=== PATIENT | male | born 1970 | race Two or more races ===

== ENCOUNTER 2020-12-07 14:07 | Emergency (ER) | payer OTHER ==
[~2020-12-07] VITALS: Ht 175.3 cm; Wt 86.3 kg
[2020-12-07] MEDS ORDERED: DIPH,PERTUSS(ACELL),TET VAC/PF 0.5 ML SYRINGE. VAX IM ONE (15:00)
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
[2020-12-07 15:11] VITALS: BP 128/75
[2020-12-07] MEDS ORDERED: NAPR-514 PO (15:13)
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
== END 2020-12-07 15:33 | disposition home or self-care (01) ==
LOC: ER 14:07
DX: S01.81XA Laceration without foreign body of other part of head, initial encounter (principal); Z88.0 Allergy status to penicillin; V49.49XA Driver injured in collision with other motor vehicles in traffic accident, initial encounter; Y93.89 Activity, other specified; Y92.488 Other paved roadways as the place of occurrence of the external cause; Y99.8 Other external cause status
CPT/HCPCS: 12011; 70450; 72125; 90471; 90715; 99285-25